=== PATIENT | female | born 1985 | race Caucasian/White ===

== ENCOUNTER 2021-10-01 11:20 | Day surgery (SDC) | payer BC ==
[~2021-10-01] VITALS: Ht 177.8 cm; Wt 110.0 kg
[2021-10-01 11:55] VITALS: BP 141/74; PULSE 82; TEMP 97.5
[2021-10-01] MEDS ORDERED: LASIX 20MG TABL20 MG PO (12:01)
[2021-10-01] MEDS ORDERED: ALDACTONE50 MG PO (12:01)
[2021-10-01 12:25] VITALS: BP 131/58; PULSE 70
--- NOTE | 2021-10-01 12:25 | NUR ---
Patient returns to [facility] per cart and is awake and alert. Transfers from cart to recliner with one person assist. IV fluids infusing. Temp 97.5 and room air sats 100%. Spouse in room. Call light in reach. Drinks water. Denies pain or nausea.
[2021-10-01 12:40] VITALS: BP 123/62; PULSE 69
--- NOTE | 2021-10-01 12:40 | NUR ---
Sipping on water. Continues to deny pain or nausea.
[2021-10-01 12:55] VITALS: BP 131/64; PULSE 71
--- NOTE | 2021-10-01 12:55 | NUR ---
Dr. Khalil here and talks with patient. All questions answered.
--- NOTE | 2021-10-01 12:57 | NUR ---
IV discontinued and site is free of redness or swelling. Patient dresses self.
--- NOTE | 2021-10-01 13:00 | NUR ---
Dismissal instructions given and voices understanding of these. Patient dismissed to home driven by spouse and taken to the vehicle per wheelchair and assisted into vehilce.
== END 2021-10-01 13:00 | disposition home or self-care (01) ==
LOC: SDCO 11:20
DX: I85.10 Secondary esophageal varices without bleeding (principal); K74.60 Unspecified cirrhosis of liver; R18.8 Other ascites; Z79.899 Other long term (current) drug therapy
CPT/HCPCS: J2704; J7030

== ENCOUNTER → 2022-04-06 | Outpatient (CLI) | payer BC ==
[~2022-04-06] MED LIST: ALDACTONE50 MG PO; LASIX 20MG TABL20 MG PO
== END ==
LOC: COL.RAD 07:02
DX: K80.20 Calculus of gallbladder without cholecystitis without obstruction (principal); K74.3 Primary biliary cirrhosis; R74.8 Abnormal levels of other serum enzymes; E88.01 Alpha-1-antitrypsin deficiency; K74.60 Unspecified cirrhosis of liver; R18.8 Other ascites; I72.8 Aneurysm of other specified arteries; R16.1 Splenomegaly, not elsewhere classified

== ENCOUNTER → 2024-04-16 | Outpatient (CLI) | payer BC | LOC: MC.RAD 09:45 | DX: Z12.31 Encounter for screening mammogram for malignant neoplasm of breast (principal) ==

== ENCOUNTER → 2024-09-16 | Outpatient (CLI) | payer BC, OTHER ==
[~2024-09-16] MED LIST changes: +Gadoterate 20 ML VIAL IV ONE
== END ==
LOC: COL.RAD 07:10
DX: K74.60 Unspecified cirrhosis of liver (principal); K80.20 Calculus of gallbladder without cholecystitis without obstruction; K76.6 Portal hypertension; R18.8 Other ascites
CPT/HCPCS: A9575